=== PATIENT | male | born 1950 | race Caucasian/White ===

== ENCOUNTER 2018-10-02 07:09 | Emergency (ER) | payer BC, MEDICARE ==
[~2018-10-02] VITALS: Ht 180.3 cm; Wt 139.3 kg
[~2018-10-02 07:09] MED LIST: ALLOPURINOL 30300 M2 PO; HYDROCHLOROTHIA25 M2 PO; LISINOPRIL2.5 MG PO; PLAVIX 75 MG TA75 M1 PO; SORINE 80 MG TA80 M1 PO; SYMBYAX 12-251 EACH PO; TOPROL XL25 MG PO; XARELTO20 MG PO
[2018-10-02] MEDS ORDERED: SORINE 80 MG TA80 M1 PO (07:34)
[2018-10-02] MEDS ORDERED: ATORVASTATIN CA40 MG PO (07:34)
[2018-10-02] MEDS ORDERED: SYMBICORT160 MCG/4. INH (07:34)
[2018-10-02 07:50] LABS: ABSOLUTE BASOPHILS 0.1 thou/uL (0.0-0.2); ABSOLUTE EOSINOPHILS 0.6 thou/uL (0.0-0.7); ABSOLUTE LYMPHOCYTES 2.6 thou/uL (0.8-5.3); ABSOLUTE MONOCYTES 0.6 thou/uL (0.0-1.2); EOSINOPHILS 7.2 %; HEMATOCRIT 52.2 % (42.0-52.0); HEMOGLOBIN 17.6 gm/dL (14.0-18.0); LYMPHOCYTES 29.3 %; MCH 31.1 pg (26.0-34.0); MCHC 33.7 g/dL (28.0-37.0); MCV 92.1 fL (80.0-100.0); MONOCYTES 7.1 %; MPV 7.5 fl. (7.2-11.1); NUCLEATED RBCS 0 /100WBC; PLATELET COUNT* 202 thou/uL (150-400); POLYS 55.4 %; RBC 5.67 mil/uL (4.50-6.00); RDW-CV 14.3 % (10.5-14.5)
[2018-10-02 08:07] LABS: APTT 36.2 Seconds (25.0-31.3); INR 1.2; PROTIME 12.1 Seconds (9.20-11.50)
[2018-10-02 08:24] LABS: ANION GAP 8 mmol/L (7-16); BUN 15 mg/dL (7-18); CALCIUM 9.4 mg/dL (8.5-10.1); CHLORIDE 97 mmol/L (98-107); CO2 31 mmol/L (21-32); GLUCOSE 152 mg/dL (70-99); SODIUM 136 mmol/L (136-145)
[2018-10-02 08:36] LABS: ALBUMIN 3.6 g/dL (3.4-5.0); ALKALINE PHOSPHATASE 98 U/L (46-116); CK-MB MASS 0.6 ng/mL (<0.5-3.6); LIPASE 123 U/L (73-393); MAGNESIUM 1.8 mg/dL (1.8-2.4); NT-PRO BRAIN NAT PEPTIDE 256 pg/mL (<300); SGOT 29 U/L (15-37); SGPT 39 U/L (30-65); TOTAL BILIRUBIN 0.5 mg/dL (<0.1-1.0); TOTAL PROTEIN 8.4 g/dL (6.4-8.2); TROPONIN-I LEVEL <0.06 ng/mL (<0.06)
[2018-10-02 08:56] VITALS: BP 111/77
--- NOTE | 2018-10-04 16:51 | EKG ---
[place] [address] ELECTROCARDIOGRAM REPORT Name: YA GARZA Room: [facility]#: [id number] Admission: 10/02/18 Attend Phys: Discharge: 10/02/18 Date of : 50 Report #: [id number] THIS REPORT FOR: //name// [facility] ED Test Date: 2018-10-02 Test Time: 07:15:15 Pat Name: YA GARZA Department: Room: Gender: M Sorter Operator: : 1950 Requested By: Fran Gilliam Order Number: [id number] MD: Thor Echavarria Measurements Intervals [place] Rate: 129 P: MA: QRS: 66 QRSD: 85 T: 268 QT: 287 QTc: 421 Interpretive Statements Atrial fibrillation Consider left ventricular hypertrophy Baseline wander in lead(s) III,aVL,aVF,V1,V2,V3,V4,V5,V6 Compared to ECG 03/25/2017 19:46:20 Early repolarization now present Possible ischemia now present ST (T wave) deviation now present Sinus rhythm no longer present Ventricular premature complex(es) no longer present First degree AV block no longer present Atrial abnormality no longer present Q waves no longer present T-wave abnormality no longer present Electronically Signed On 10-04-2018 16:51:28 CDT by Thor Echavarria [email or web address] <ELECTRONICALLY SIGNED> By: Thor Echavarria MD, [facility] 10/04/18 1651 4 4 Thor Echavarria MD, [facility] /EPI
--- NOTE | 2018-10-04 16:52 | EKG ---
[place] [address] ELECTROCARDIOGRAM REPORT Name: YA GARZA Room: [facility]#: [id number] Admission: 10/02/18 Attend Phys: Discharge: 10/02/18 Date of : 50 Report #: [id number] THIS REPORT FOR: //name// [facility] ED Test Date: 2018-10-02 Test Time: 08:21:56 Pat Name: YA GARZA Department: Room: Gender: M Quality Assurance Supervisor Final: [facility] : 1950 Requested By: Fran Gilliam Order Number: [id number] MD: Thor Echavarria Measurements Intervals [place] Rate: 67 P: 62 NC: 262 QRS: 47 QRSD: 93 T: 152 QT: 406 QTc: 429 Interpretive Statements Sinus rhythm Prolonged NC interval Probable left atrial enlargement Probable LVH with secondary repol abnrm Compared to ECG 03/25/2017 19:46:20 Ventricular premature complex(es) no longer present Q waves no longer present T-wave abnormality no longer present atrial fib no longer noted Electronically Signed On 10-04-2018 16:52:12 CDT by Thor Echavarria [email or web address] <ELECTRONICALLY SIGNED> By: Thor Echavarria MD, [facility] 10/04/18 1652 0 Thor Echavarria MD, [facility] /EPI
== END 2018-10-02 08:58 | disposition home or self-care (01) ==
LOC: M.ERS 07:09
PROVIDERS: Family Medicine
DX: I48.0 Paroxysmal atrial fibrillation (principal); J44.9 Chronic obstructive pulmonary disease, unspecified; M10.9 Gout, unspecified; I10 Essential (primary) hypertension; F17.210 Nicotine dependence, cigarettes, uncomplicated